=== PATIENT | female | born 1950 | race Caucasian/White ===

== ENCOUNTER 2019-05-13 16:09 | Inpatient (IN) ==
[2019-05-13] MEDS ORDERED: VANCOMYCIN IV PER PHARMACY MISC SCH (16:45)
[2019-05-13] MEDS ORDERED: LEVAQUIN 500 MG/D5W 500 MG/100 ML IVPB IV SCH (17:00)
[2019-05-13] MEDS ORDERED: D5 1/2 NS 1,000 ML IV SCH (17:00)
[2019-05-13] MEDS ORDERED: VANCOMYCIN 1 GM/NS 1 GM/250 ML IVPB IV ONE (18:00)
[2019-05-13 18:28] LABS: BASO# 0.02 X1000 (0.0-0.2); BASO% 0.3 % (0.0-0.8); EOS# 0.05 X1000 (0.0-0.7); EOS% 0.8 % (0.0-10.0); HEMATOCRIT 31.2 % (37.0-47.0); HEMOGLOBIN 10.1 g/dL (12.0-16.0); IMM GRAN# 0.05 X1000 (0.0-0.04); IMM GRAN% 0.8 % (0.0-0.5); LYMPH# 1.91 X1000 (1.2-3.4); LYMPH% 31.4 % (20.5-51.1); MCH 27.6 PG (27-31); MCHC 32.4 g/dL (33-37); MCV 85.2 FL (81-99); MONO# 0.36 X1000 (0.11-0.59); MONO% 5.9 % (1.7-9.3); MPV 11.2 FL (7.4-10.4); NEUT% 60.8 % (42.2-75.2); PLT 119 X1000 (130-400); RBC 3.66 XMIL (4.2-5.4); WBC 6.09 X1000 (4.8-10.8)
[2019-05-13 18:55] LABS: ALB/GLOB RATIO 1.1; ALBUMIN 3.6 g/dL (3.5-5.0); CALCIUM 6.9 mg/dL (8.8-10.2); CREATININE 4.5 mg/dL (0.5-0.9); TOTAL BILIRUBIN 0.24 mg/dL (0.20-1.00)
[2019-05-13] MEDS ORDERED: CALCIUM GLUCONATE IV PUSH ONE (19:25)
[2019-05-13] MEDS ORDERED: CALCIUM GLUCONATE 2 GM in NS 100 ML IV ONE (20:00)
[2019-05-13] MEDS: D5 1/2 NS + KCL 20 MEQ 1,000 ML IV SCH (20:35)
[2019-05-14 00:29] LABS: URINE SOURCE CLEAN CATCH
[2019-05-14 00:36] LABS: UR EPITHELIAL CELLS <10 /HPF (<10); URINE BACTERIA NEGATIVE /HPF; URINE RBC <10 /HPF (<10); URINE WBC <10 /HPF (<10)
[2019-05-14 01:21] LABS: URINE YEAST PRESENT
[2019-05-14 01:22] LABS: URINE CASTS NONE SEEN; URINE CRYSTALS NONE SEEN; URINE SMALL ROUND CELLS NONE SEEN
[2019-05-14 02:42] LABS: BILIRUBIN URINE NEGATIVE (NEGATIVE); COLOR YELLOW; GLUCOSE URINE NEGATIVE (NEGATIVE); TURBIDITY URINE HAZY (CLEAR)
[2019-05-14 02:43] LABS: BLOOD URINE TRACE (NEGATIVE); KETONE URINE NEGATIVE (NEGATIVE); PH URINE 5.5; PROTEIN URINE 50 mg/dL (NEGATIVE); SP GRAVITY URINE 1.011; UROBILINOGEN URINE NORMAL (NORMAL)
[2019-05-14 02:44] LABS: LEUKOCYTES URINE NEGATIVE (NEGATIVE); NITRITE URINE NEGATIVE (NEGATIVE)
[2019-05-14 07:04] LABS: BASO# 0.01 X1000 (0.0-0.2); BASO% 0.3 % (0.0-0.8); EOS# 0.08 X1000 (0.0-0.7); EOS% 2.1 % (0.0-10.0); HEMATOCRIT 29.6 % (37.0-47.0); HEMOGLOBIN 9.8 g/dL (12.0-16.0); IMM GRAN# 0.02 X1000 (0.0-0.04); IMM GRAN% 0.5 % (0.0-0.5); LYMPH# 1.42 X1000 (1.2-3.4); LYMPH% 37.5 % (20.5-51.1); MCHC 33.1 g/dL (33-37); MCV 84.6 FL (81-99); MONO# 0.32 X1000 (0.11-0.59); MONO% 8.4 % (1.7-9.3); MPV 11.3 FL (7.4-10.4); NEUT# 1.94 X1000 (1.4-6.5); NEUT% 51.2 % (42.2-75.2); PLT 98 X1000 (130-400); RDW 17.8 % (11.5-14.5); WBC 3.79 X1000 (4.8-10.8)
[2019-05-14 07:36] LABS: CREATININE 3.8 mg/dL (0.5-0.9); POTASSIUM 2.9 mmol/L (3.5-5.1)
[2019-05-14 07:54] LABS: CALCIUM 6.5 mg/dL (8.8-10.2)
--- NOTE | 2019-05-14 08:11 | Diag Imaging Result Doc PS360 ---
US ABDOMEN-COMPLETE - 05/14/2019 INDICATION: decreased kidney function COMPARISON: 03/19/2012 FINDINGS: The exam is challenging due to excessive bowel gas. The gallbladder is absent. The pancreas is obscured. The liver and spleen are normal. Common bile duct measures 8 mm. The kidneys are very atrophic, even more so than prior. The right kidney measures 7.5 x 4 x 4.5 cm. The left kidney measures 8.4 x 3.5 x 4.5 cm. Cortex measures about 7 mm bilaterally. IMPRESSION: Moderate diffuse renal atrophy. Progressive since prior. Electronically signed by Diego Hartley 05/14/2019 8:09 AM
[2019-05-14] MEDS ORDERED: NORVASC PO PRN (08:18)
[2019-05-14] MEDS ORDERED: BENADRYL PO PRN (08:18)
[2019-05-14] MEDS ORDERED: ZANTAC PO PRN (08:18)
[2019-05-14] MEDS ORDERED: CALCIUM GLUCONATE IV PUSH ONE (08:19)
[2019-05-14] MEDS ORDERED: CODEINE PO PRN (08:30)
[2019-05-14] MEDS ORDERED: CYANOCOBALAMIN INJ SCH (08:30)
[2019-05-14] MEDS ORDERED: MAGNESIUM SULFATE IV SCH (08:30)
[2019-05-14] MEDS ORDERED: VITAMIN D PO SCH (08:30)
[2019-05-14] MEDS ORDERED: CALCIUM GLUCONATE 2 GM in NS 100 ML IV ONE (09:30)
[2019-05-14] MEDS: ZOFRAN IV PRN ×3 (09:33→18:42)
[2019-05-14] MEDS: XIFAXAN PO SCH ×3 (10:07→18:31)
[2019-05-14] MEDS: NORCO-10 PO SCH ×4 (10:07→21:50)
[2019-05-14] MEDS: VIMPAT PO SCH ×2 (10:07→21:49)
[2019-05-14] MEDS: ASPIRIN PO SCH (10:08)
[2019-05-14] MEDS: SODIUM BICARBONATE PO SCH ×2 (10:08→21:49)
[2019-05-14] MEDS: PAXIL PO SCH (10:08)
[2019-05-14] MEDS: ROCALTROL PO SCH (10:09)
[2019-05-14] MEDS: PROAMATINE PO SCH (10:09)
[2019-05-14] MEDS: LOMOTIL PO SCH ×3 (10:13→18:31)
[2019-05-14] MEDS: POTASSIUM CHLORIDE 20 MEQ/SWI 20 MEQ/100 ML IVPB IV SCH ×3 (10:19→15:41)
--- NOTE | 2019-05-14 12:03 | Diag Imaging Result Doc PS360 ---
CHEST-PORTABLE - 05/14/2019 INDICATION: cough COMPARISON: 05/25/2015 FINDINGS: Stable left chest port in good position. The lungs are clear. Heart size is normal. No pneumothorax or pleural effusion. IMPRESSION: Negative exam. Electronically signed by Diego Hartley 05/14/2019 12:00 PM
[2019-05-14] MEDS: ZANAFLEX PO SCH ×2 (13:02→21:51)
[2019-05-14] MEDS: CLEOCIN PO SCH ×2 (13:02→21:49)
[2019-05-14] MEDS: D5 1/2 NS + KCL 20 MEQ 1,000 ML IV SCH (13:03)
[2019-05-14 18:43] LABS: URINE SOURCE VOIDED
[2019-05-14 18:46] LABS: BILIRUBIN URINE NEGATIVE (NEGATIVE); BLOOD URINE TRACE (NEGATIVE); COLOR YELLOW; GLUCOSE URINE NEGATIVE (NEGATIVE); KETONE URINE NEGATIVE (NEGATIVE); LEUKOCYTES URINE NEGATIVE (NEGATIVE); NITRITE URINE NEGATIVE (NEGATIVE); PH URINE 5.5; PROTEIN URINE 30 mg/dL (NEGATIVE); SP GRAVITY URINE 1.007; TURBIDITY URINE CLEAR (CLEAR); UR EPITHELIAL CELLS <10 /HPF (<10); URINE BACTERIA NEGATIVE /HPF; URINE RBC <10 /HPF (<10); URINE WBC <10 /HPF (<10); UROBILINOGEN URINE NORMAL (NORMAL)
[2019-05-14 19:01] LABS: UR CREAT RANDOM 71.4 mg/dL (11-20)
--- NOTE | 2019-05-14 21:48 | NEPHROLOGY CONSULTATION ---
DATE: 05/14/2019 REASON FOR CONSULTATION: CKD stage 5. HISTORY OF PRESENT ILLNESS: Ms. Mendes is a 68-year-old white female with a complicated past medical history. She has a history of Crohn disease for which she has had multiple abdominal surgeries as well as a colostomy. She has known chronic kidney disease with baseline creatinine around 4. She has been through multiple access surgeries without success. She has been followed by Dr. My Bird. She also has metabolic acidosis, chronic pain syndrome, hypertension, etc. She is somewhat hard of hearing. She was admitted to the hospital because of an ulcer on her sacrum which was felt to require surgical debridement and antibiotics. She states she is eating acceptably. No vomiting. She does have generalized weakness and fatigue. These are not new in onset an roughly stable. She does have some sleep disturbance. No swelling or shortness of breath. PAST MEDICAL HISTORY: As above. She also has hypertension, and history of thyroid cancer. HOME MEDICATIONS: Include amlodipine, calcitriol, codeine, cyanocobalamin, diphenhydramine, diphenoxylate, fluticasone, hydrocodone, Vimpat, levothyroxine, lorazepam, magnesium, midodrine, ondansetron, paroxetine, pramipexole, ranitidine, Seroquel, sodium bicarbonate, tizanidine, trazodone, warfarin. ALLERGIES: Sulfa, penicillin, apixaban, rivaroxaban. SOCIAL HISTORY: She lives in [place]. Cared for by extended family who do not live close by. FAMILY HISTORY AND REVIEW OF SYSTEMS: Otherwise noncontributory. She relates multiple maternal family members who "had problems with their kidneys." The suggested however was that was more related to malignancy. PHYSICAL EXAMINATION: Vital Signs: Blood pressure 154/52, heart rate 91, respirations 20, afebrile. GENERALLY: Chronically ill, elderly woman in no distress.Skin: Warm and dry. Conjunctivae are pink. Pupils are equal. Oropharynx is clear, dry. Dentition normal. Neck: Supple. Trachea is midline. Neck veins are not distended. Ears: Hard of hearing. Heart: PMI is nondisplaced. Regular rate and rhythm without gallops, murmurs, rubs. Lungs: Have equal breath sounds. No crackles, wheezes, accessory muscle use or retractions. Abdomen: Soft, difficult to examine. Multiple scars. Left lower quadrant colostomy. Bowel sounds are present. Extremities: Have minimal edema. No clubbing or cyanosis. Neurologic: Nonfocal. IMPRESSION: 1. Chronic kidney disease stage 5. Significant metabolic acidosis. This is likely exacerbated by her diarrhea. Her creatinine is below her reported baseline. I will reach out to Dr. Bird to discuss her care to this point and formulate a strategy for moving forward. 2. She does have hypokalemia. She is receiving IV magnesium, IV calcium and IV potassium. We will follow with you. cc: MD Darren Russo MD
[2019-05-14] MEDS: DESYREL PO SCH (21:49)
[2019-05-14] MEDS: KLOR-CON PO SCH (21:49)
[2019-05-14] MEDS: MIRAPEX PO SCH (21:57)
[2019-05-15] MEDS: SYNTHROID PO SCH ×2 (06:39→06:40)
[2019-05-15] MEDS: ZANAFLEX PO SCH ×3 (06:40→21:09)
[2019-05-15] MEDS: CLEOCIN PO SCH ×4 (06:40→21:09)
[2019-05-15 07:11] LABS: ALBUMIN 3.2 g/dL (3.5-5.0); CALCIUM 7.4 mg/dL (8.8-10.2); CREATININE 3.9 mg/dL (0.5-0.9); PHOSPHORUS 4.2 mg/dL (2.7-4.5); POTASSIUM 4.3 mmol/L (3.5-5.1)
[2019-05-15] MEDS ORDERED: MAGNESIUM SULFATE 1 GM/D5W 1 GM/100 ML IVPB IV ONE (07:37)
[2019-05-15] MEDS: D5 1/2 NS + KCL 20 MEQ 1,000 ML IV SCH (07:42)
[2019-05-15] MEDS ORDERED: XYLOCAINE-MPF 2% ONE (07:46)
[2019-05-15] MEDS ORDERED: QUELICIN (DOSE) ONE (07:46)
[2019-05-15] MEDS ORDERED: DIPRIVAN 1% ONE (07:46)
--- NOTE | 2019-05-15 08:08 | INFECTIOUS DISEASE CONSULT REP ---
DATE: 05/14/2019 CONCLUSION: The patient has a sacral decubitus ulcer. It is approximately 5 cm in length and 1 cm in depth. There is surrounding erythema on the ulcer. RECOMMENDATIONS: Dr. Francis consulted me to see the patient and treat for any infection. I have changed the patient from IV Levaquin and vancomycin to p.o. Levaquin, and added p.o. clindamycin. The dose of Levaquin has been decreased because of the patient's end-stage renal disease. DISCUSSION: The patient tells me that she has had a decubitus ulcer for 6 months, and it is painful and has not gotten any better. LABORATORY DATA: Laboratory studies thus far show a CBC with a white count of 3790, hemoglobin 9.8, and platelet count 98,000. Creatinine is 3.8. GFR is 12. Alkaline phosphatase is 148. Urinalysis showed yeast, and no white cells and no bacteria. The sacral wound on Gram stain showed no bacteria, and the culture is negative at this time. PAST MEDICAL HISTORY/REVIEW OF SYSTEMS: Eyes and Ears: The patient has very poor hearing. She also states her vision is not good either. Neck: No stiffness. Respiratory: No cough or shortness of breath. Cardiac: No chest pain or palpitations. GI: The patient has been nauseated. She has had extensive GI surgeries. She has a colonoscopy, and no rectum. : No dysuria or flank pain. Bones/Joints/Muscles: No joint swelling or muscle aching. Endocrine: The patient has hypothyroidism secondary to her thyroid being removed. She is not a diabetic. Neurologic: The patient has decreased vision and hearing. She does not have seizures. She has not lost any motor or sensory function recently. FLIGHT HOSTESS HISTORY: She is 2, para 2, AB 0. She has had a hysterectomy. PREVIOUS HOSPITALIZATIONS AND OPERATIONS: She has had two labor and deliveries, hysterectomy, cholecystectomy, thyroidectomy, appendectomy, tonsillectomy, and numerous GI tract surgeries for Crohn's disease. She has a colostomy, and no rectum. The patient also has a Port-A-Cath on the left side. MEDICAL DISEASES: Positive for Crohn's disease and endometriosis. She also is hypothyroid because of surgical removal of the thyroid. INFECTIOUS DISEASE HISTORY: The patient has had pneumonia and a urinary tract infection. FAMILY HISTORY: Positive for diabetes mellitus, myocardial infarction, stroke, and cancer. SOCIAL HISTORY[place] . She has dogs for pets. She does not smoke cigarettes or drink alcoholic beverages or abuse drugs. HOME MEDICATIONS: Include the following. She is on amlodipine, vitamin B12, diphenoxylate/atropine, hydrocodone, Vimpat, Synthroid, magnesium infusion, Paxil, Mirapex, Zantac, rifaximin, Zanaflex, and Desyrel. ALLERGIES: The patient is allergic to the following medications. She is allergic to penicillin, and she had anaphylaxis with penicillin. She is allergic to sulfa, although the reaction is unknown. She is allergic to Eliquis, manifested by nausea. She is allergic to Xarelto, manifested by cramps. I would suggest that the Eliquis and Xarelto are not really allergies, they are adverse reactions rather than an allergy. PHYSICAL EXAMINATION: Vital Signs: Temperature is 98.5 degrees, pulse 87, respirations 20, blood pressure 154/56. The patient is 5 feet 3 inches tall, and weighs 142 pounds. General: This is an elderly, ill-appearing female. She is in no acute distress. HEENT: She has decreased hearing. She can see near objects. She does not have any white coating in her mouth. Neck: No meningismus. Lungs: Clear to auscultation. Cardiovascular: Heart rate is regular. Abdomen: Soft and nontender. There are two incisions, which have been healed for a long time. The patient has a colostomy in place. It is functional. Neurologic: The patient is alert. She can move her extremities. She is able to walk. She has marked decreased hearing. She can see near objects. Thorax: The patient has a Port-A-Cath in place on the left side. The site is not erythematous or swollen. Integument: In the sacral area, there is approximately a 4 to 5 cm long and 1 cm wide and about 1 cm deep sacral decubitus ulcer. There is erythema surrounding the ulcer. The ulcer bed does not have any purulence or necrosis. cc: MD Darren Conner MD MTDD
[2019-05-15] MEDS ORDERED: LR 200 ML IV ONE (08:14)
[2019-05-15] MEDS ORDERED: LR 200 ML IV SCH (08:15)
[2019-05-15] MEDS: NORCO-10 PO SCH ×2 (08:36→12:08)
[2019-05-15] MEDS: PAXIL PO SCH (09:27)
[2019-05-15] MEDS: ASPIRIN PO SCH (09:28)
[2019-05-15] MEDS: XIFAXAN PO SCH ×3 (09:28→21:09)
[2019-05-15] MEDS: KLOR-CON PO SCH ×2 (09:28→21:09)
[2019-05-15] MEDS: SODIUM BICARBONATE PO SCH ×2 (09:28→21:09)
[2019-05-15] MEDS: ROCALTROL PO SCH (09:28)
[2019-05-15] MEDS: PROAMATINE PO SCH (09:28)
[2019-05-15] MEDS: LOMOTIL PO SCH ×3 (09:35→21:09)
[2019-05-15] MEDS: VIMPAT PO SCH ×2 (09:35→21:09)
[2019-05-15] MEDS: SODIUM BICARBONATE 8.4% 150 MEQ in D5W 1,000 ML IV SCH (11:23)
--- NOTE | 2019-05-15 15:04 | INFECTIOUS DISEASE PROGRESS NO ---
DATE: 05/15/2019 PRESENT ILLNESS: The patient has a sacral decubitus ulcer which appears to be infected. There is surrounding erythema but there is no purulence in the ulcer itself. MEDICATIONS: The patient is receiving a combination of Levaquin and clindamycin, both are being given p.o. PHYSICAL EXAMINATION: Vital Signs: Temperature is 97.5 degrees, pulse 56, respirations 18, blood pressure 78/41. General: This is an ill-appearing, lethargic, elderly female. She is in no acute distress. Head/eyes/ears/nose/throat: No drainage noted from the nose or the ears. She did not respond to any verbal stimuli. Neck: No stiffness to passive moving. Lungs: Clear to auscultation. Cardiovascular: Heart rate is regular. Abdomen: Soft and nontender. Back: Back inspection in the sacral area there is a approximately 4 to 5 cm long and 1 cm deep decubitus ulcer. The surrounding erythema has almost cleared. The ulcer itself does not have any necrosis or purulence. Thorax: The patient has a Port-A-Cath present on the left side. The site is not erythematous or swollen. Neurologic: The patient is lethargic. She did not respond to verbal stimuli. She does not have a tremor. LAB AND X-RAY: The sacral decubitus wound culture is negative thus far. The creatinine is 3.9. GFR is 11. ASSESSMENT AND PLAN: The patient has a sacral decubitus ulcer which was infected but it looks like it is rapidly clearing. My plan is to continue with Levaquin and clindamycin possibly for as little as 1 more day, but it is dependent on how the wound looks and also the final wound culture result. COMORBIDITIES: The patient is elderly. She has end-stage renal disease, she also has Crohn disease. Also, the patient is hypothyroid and she has endometriosis. cc: MD Darren Conner MD
[2019-05-15] MEDS: LEVAQUIN PO SCH ×2 (15:51→20:01)
--- NOTE | 2019-05-15 16:33 | NEPHROLOGY PROGRESS NOTE ---
DATE: 05/15/2019 SUBJECTIVE: She is anticipating surgery today. No shortness of breath, nausea or vomiting. OBJECTIVE: Vital signs: Blood pressure 80/55, heart rate 56, respiration 18, afebrile. Generally: No acute distress. Skin: Warm and dry. Neck: Veins are not distended. Cardiovascular: Heart is regular. No rubs. Respiratory: Lungs are equal. No crackles. Abdomen: Soft, nontender. Bowel sounds present. Extremities: No edema, clubbing or cyanosis. IMPRESSION AND PLAN: Chronic kidney disease stage 5. At baseline. She is significantly acidotic which is related both to her diarrhea and her chronic kidney disease. I will change her IV fluids to contain sodium bicarbonate. Otherwise okay for surgery today. cc: MD Darren Russo MD
[2019-05-15] MEDS: DESYREL PO SCH (21:08)
[2019-05-15] MEDS: MIRAPEX PO SCH (21:08)
[2019-05-16] MEDS: SODIUM BICARBONATE 8.4% 150 MEQ in D5W 1,000 ML IV SCH (02:40)
[2019-05-16] MEDS: CLEOCIN PO SCH ×4 (06:47→23:49)
[2019-05-16] MEDS: SYNTHROID PO SCH ×2 (06:47)
[2019-05-16] MEDS: ZANAFLEX PO SCH ×3 (06:47→20:35)
[2019-05-16 07:22] LABS: ALBUMIN 3.2 g/dL (3.5-5.0); CALCIUM 7.6 mg/dL (8.8-10.2); CREATININE 3.5 mg/dL (0.5-0.9); MAGNESIUM 0.9 mg/dL (1.5-2.7); PHOSPHORUS 3.1 mg/dL (2.7-4.5); POTASSIUM 3.9 mmol/L (3.5-5.1)
[2019-05-16] MEDS ORDERED: MAGNESIUM SULFATE 1 GM/D5W 1 GM/100 ML IVPB IV ONE (07:49)
[2019-05-16] MEDS: XIFAXAN PO SCH ×3 (09:34→16:39)
[2019-05-16] MEDS: VIMPAT PO SCH ×2 (09:34→20:35)
[2019-05-16] MEDS: PAXIL PO SCH (09:34)
[2019-05-16] MEDS: SODIUM BICARBONATE PO SCH ×2 (09:34→20:35)
[2019-05-16] MEDS: ASPIRIN PO SCH (09:34)
[2019-05-16] MEDS: KLOR-CON PO SCH (09:35)
[2019-05-16] MEDS: LOMOTIL PO SCH ×3 (09:35→16:39)
[2019-05-16] MEDS: ROCALTROL PO SCH (09:35)
[2019-05-16] MEDS: PROAMATINE PO SCH (09:35)
[2019-05-16] MEDS ORDERED: DIPRIVAN 1% ONE (12:32)
[2019-05-16] MEDS ORDERED: XYLOCAINE-MPF 2% ONE (13:39)
[2019-05-16] MEDS ORDERED: LEVAQUIN 500 MG/D5W 500 MG/100 ML IVPB ONE (14:46)
--- NOTE | 2019-05-16 16:14 | INFECTIOUS DISEASE PROGRESS NO ---
DATE: 05/16/2019 PRESENT ILLNESS: The patient was admitted to the hospital with an infected sacral decubitus ulcer. Since that time, to me it looks like the infection has totally cleared. MEDICATIONS: The patient is on a combination of Levaquin and clindamycin. PHYSICAL EXAMINATION: Vital Signs: Temperature is 99.1 degrees, pulse 70, respirations 20, blood pressure 126/53. General: This is a somewhat ill-appearing, elderly female. She is fully alert today. She is in no acute distress. Head, eyes, ears, nose, and throat: She has decreased hearing. When I talk, sometimes she can make out everything I am saying and at other times she has difficulties. She can see near objects. Neck: She does not have any pain in her neck when she moves her head or her neck. Lungs: Clear to auscultation. Cardiovascular: Heart rate is regular. Thorax: The patient has a Port-A-Cath present on the left side. The site is not erythematous or swollen. Integument: In the sacral area there is a small ulcerated area. It is roughly 4 to 5 cm in length and a few millimeters in width and depth. There is no surrounding erythema. The wound itself does not have any purulence or necrosis. The area is not tender either. Neurologic: Patient is alert. She can move her extremities. As mentioned before, she has decreased hearing. LAB AND X-RAY: The final culture on the decubitus ulcer is negative. The creatinine is down to 3.5. GFR is 13. ASSESSMENT AND PLAN: The patient's sacral decubitus ulcer does not appear to me to be infected at this time. I am going to stop the patient's antibiotics and I am signing off on the patient's case. I am available to see her on a p.r.n. basis. COMORBIDITIES: The patient is elderly. She has end-stage renal disease and Crohn disease. She also has hypothyroidism and in the past had endometriosis. cc: MD Darren Conner MD
[2019-05-16] MEDS: LEVAQUIN PO SCH (16:39)
[2019-05-16] MEDS: NORCO-10 PO PRN ×3 (16:43→23:48)
[2019-05-16] MEDS ORDERED: SODIUM BICARBONATE 8.4% 150 MEQ in D5W 1,000 ML IV SCH (17:00)
--- NOTE | 2019-05-16 17:19 | NEPHROLOGY PROGRESS NOTE ---
DATE: 05/16/2019 SUBJECTIVE: She had her surgery delayed, presumably because of her hypomagnesemia. She is receiving replacement. No new symptoms. OBJECTIVE: Vital Signs: Blood pressure 126/53, heart rate 70, respirations 20, afebrile. General: No acute distress. Skin: Warm and dry. Neck: Neck veins are not distended. Heart: Regular. No gallops. Lungs: Equal. No crackles or wheezes. Abdomen: Soft, nontender. Bowel sounds present. Extremities: No edema, clubbing, or cyanosis. IMPRESSION: 1. Chronic kidney disease stage 4 to 5. Creatinine is trending slowly down. It is 3.5 today. Continue current intravenous fluids. 2. Metabolic acidosis secondary to chronic kidney disease as well as chronic diarrhea. I started a bicarbonate drip yesterday and her serum bicarbonate is up to 19. Continue oral bicarbonate and I will titrate that dose upward after her intravenous bicarbonate is discontinued. 3. Hypomagnesemia. Treated. cc: MD Darren Russo MD
[2019-05-16] MEDS: DESYREL PO SCH (20:35)
[2019-05-16] MEDS: MIRAPEX PO SCH (20:36)
--- NOTE | 2019-05-16 21:48 | OPERATIVE NOTE ---
PROCEDURE DATE: 05/16/2019 PREOPERATIVE DIAGNOSIS: Decubitus ulcer of the sacrum. POSTOPERATIVE DIAGNOSIS: Decubitus ulcer of the sacrum. PROCEDURE: Debridement. DESCRIPTION OF PROCEDURE: The patient was brought to the operating room. After satisfactory induction of IV and LMA anesthesia, she was turned onto her side. The sacral decubitus was prepped and draped and sharply debrided. Hemostasis was obtained by electrocautery. A Betadine- soaked gauze was packed into the wound. Sterile dressing was applied. She was turned back onto her back, awakened, and extubated and transferred to recovery. ESTIMATED BLOOD LOSS: 1-2 mL. cc: Darren Abdalla MD
[2019-05-16] MEDS: PERIDEX MT SCH (23:49)
[2019-05-17] MEDS: CLEOCIN PO SCH ×3 (03:52→20:47)
[2019-05-17] MEDS: NORCO-10 PO PRN ×4 (03:53→18:17)
[2019-05-17] MEDS: ZANAFLEX PO SCH ×4 (03:53→20:47)
[2019-05-17] MEDS: SYNTHROID PO SCH ×2 (06:25)
[2019-05-17 06:48] LABS: ALBUMIN 2.9 g/dL (3.5-5.0); CALCIUM 7.5 mg/dL (8.8-10.2); CREATININE 2.9 mg/dL (0.5-0.9); POTASSIUM 3.5 mmol/L (3.5-5.1)
[2019-05-17] MEDS: ASPIRIN PO SCH (09:34)
[2019-05-17] MEDS: LOMOTIL PO SCH ×3 (09:34→16:33)
[2019-05-17] MEDS: PAXIL PO SCH (09:35)
[2019-05-17] MEDS: SODIUM BICARBONATE PO SCH ×3 (09:35→16:34)
[2019-05-17] MEDS: PERIDEX MT SCH ×3 (09:35→20:50)
[2019-05-17] MEDS: PROAMATINE PO SCH (09:35)
[2019-05-17] MEDS: XIFAXAN PO SCH ×3 (09:35→16:34)
[2019-05-17] MEDS: VIMPAT PO SCH ×2 (09:35→20:47)
[2019-05-17] MEDS: ROCALTROL PO SCH (10:00)
[2019-05-17] MEDS: ZOFRAN IV PRN (10:03)
[2019-05-17] MEDS: LEVAQUIN PO SCH (16:33)
--- NOTE | 2019-05-17 19:15 | NEPHROLOGY PROGRESS NOTE ---
DATE: 05/17/2019 SUBJECTIVE: She is lying in bed. No shortness of breath. The pain kept her awake, but she slept well once she was treated. OBJECTIVE: Blood pressure 123/56, heart rate 60, respirations 16, afebrile. Generally, no acute distress. Skin is warm and dry. Conjunctivae are pink. Neck veins are not distended. Heart is regular. No gallops. Lungs are equal. No crackles. Abdomen is soft, nontender. Bowel sounds present.Extremities: No edema, clubbing or cyanosis. IMPRESSION AND PLAN: 1. Chronic kidney disease stage 4. Creatinine 2.9 today. 2. Electrolytes in target. 3. Acid base. Bicarbonate now 23, so I will stop her intravenous bicarbonate and increase her oral bicarbonate to 1300 t.i.d. No other changes. cc: MD Darren Russo MD
[2019-05-17] MEDS ORDERED: VANCOMYCIN 1 GM/NS 1 GM/250 ML IVPB IV SCH (20:00)
[2019-05-17] MEDS: MIRAPEX PO SCH (20:46)
[2019-05-17] MEDS: DESYREL PO SCH (20:47)
[2019-05-18] MEDS: CLEOCIN PO SCH ×3 (00:42→07:25)
[2019-05-18] MEDS: NORCO-10 PO PRN ×2 (02:08→08:58)
[2019-05-18 07:06] LABS: ALBUMIN 2.7 g/dL (3.5-5.0); CALCIUM 7.8 mg/dL (8.8-10.2); CREATININE 2.6 mg/dL (0.5-0.9); PHOSPHORUS 3.5 mg/dL (2.7-4.5); POTASSIUM 3.4 mmol/L (3.5-5.1)
[2019-05-18] MEDS: ZANAFLEX PO SCH (07:23)
[2019-05-18] MEDS: SYNTHROID PO SCH ×2 (07:23)
[2019-05-18 07:55] VITALS: BP 99/57
[2019-05-18] MEDS: LOMOTIL PO SCH (08:57)
[2019-05-18] MEDS: PAXIL PO SCH (08:57)
[2019-05-18] MEDS: ASPIRIN PO SCH (08:57)
[2019-05-18] MEDS: VIMPAT PO SCH (08:57)
[2019-05-18] MEDS: XIFAXAN PO SCH (08:57)
[2019-05-18] MEDS: SODIUM BICARBONATE PO SCH (08:57)
[2019-05-18] MEDS: PERIDEX MT SCH (08:58)
[2019-05-18] MEDS: ZOFRAN IV PRN (08:58)
[2019-05-18] MEDS: PROAMATINE PO SCH (08:59)
[2019-05-18] MEDS: ROCALTROL PO SCH (09:22)
--- NOTE | 2019-05-21 22:23 | DISCHARGE SUMMARY ---
ADMISSION DATE: 05/15/2019 DISCHARGE DATE: 05/18/2019 DIAGNOSIS: Sacral decubitus with multiple medical problems. HISTORY OF PRESENT ILLNESS: The patient is a 68-year-old, white female with history of multiple medical problems including diabetes, Crohn disease, COPD and new onset of a sacral decubitus ulcer. HOSPITAL COURSE: She was admitted and placed on broad-spectrum antibiotics with consultation to Dr. Pa Salazar. She was taken to surgery on 05/17 for a surgical debridement. The decubitus is fairly small. Cultures were negative and it should granulate in. She was subsequently allowed home on 05/18 with home health and oral antibiotics to be seen in the office in 1 week's time. cc: Darren Abdalla MD
[2019-06-07] MEDS ORDERED: MAGNESIUM SULFATE IV SCH (09:00)
[2019-06-07] MEDS ORDERED: NS IV SCH (09:00)
== END 2019-05-18 12:54 | disposition home health service (06) | DRG 593 ==
LOC: INTOOBSV 16:09 → DIRADM 16:09 → 4N 16:18
PROVIDERS: ADMIT Surgery; ATTEND Surgery
CPT/HCPCS: 71010; 71045; 76700; 80048; 80053; 80069; 81001; 82378; 82570; 83735; 84156; 85025; 87070; 94761; 94799; A9270; J0330; J0610; J1956; J2405; J3370; J3420; J3475; J3480; J7070; J7120